=== PATIENT | male | born 1970 | race Asian ===

== ENCOUNTER 2020-07-18 16:07 | Emergency (ER) | payer BC, SELFPAY ==
[~2020-07-18] VITALS: Ht 162.6 cm; Wt 104.3 kg
[2020-07-18 16:22] VITALS: BP_SYST 149
[2020-07-18 16:59] LABS: BASOPHILS # (AUTO) 0.1 K/uL (0.0-0.2); BASOPHILS % (AUTO) 1.2 % (0.0-2.0); EOSINOPHILS # (AUTO) 0.1 K/uL (0.0-0.4); EOSINOPHILS % (AUTO) 1.5 % (0.0-4.0); HEMOGLOBIN 15.1 g/dL (14.0-18.0); LYMPHOCYTES # (AUTO) 1.2 K/uL (1.0-5.5); LYMPHOCYTES % (AUTO) 12.3 % (20.5-51.5); MEAN CORPUSCULAR HEMOGLOBIN 32 pg (27-31); MEAN CORPUSCULAR HGB CONC 33 % (32-36); MEAN CORPUSCULAR VOLUME 95 fL (79.0-98.0); MONOCYTES # (AUTO) 0.8 K/uL (0.0-1.0); MONOCYTES % (AUTO) 8.2 % (1.7-9.3); NEUTROPHILS # (AUTO) 7.2 K/uL (1.8-7.7); NEUTROPHILS % (AUTO) 76.8 % (40.0-70.0); PLATELET COUNT (AUTO) 227 K/uL (130-430); RED BLOOD CELL COUNT(AUTO) 4.75 MIL/uL (4.2-6.2); RED CELL DISTRIBUTION WIDTH 16.1 % (9.0-15.0); WHITE BLOOD COUNT (AUTO) 9.4 K/uL (4.8-10.8)
[2020-07-18 17:16] LABS: CALCIUM 8.3 mg/dL (8.4-11.0); CREATININE 2.33 mg/dL (0.55-1.30); POTASSIUM 5.1 mmol/L (3.5-5.1)
[2020-07-18 17:25] LABS: ALBUMIN 3.1 g/dL (3.4-4.8); TOTAL BILIRUBIN 0.4 mg/dL (0.0-1.0)
[2020-07-18] MEDS ORDERED: FUROSEMIDE 40 MG/4 ML VIAL IVP ONE (18:00)
[2020-07-18] MEDS ORDERED: ALBUTEROL SULFATE 0.083% 2.5 MG/3 ML VIAL.NEB INH ONE (18:00)
[2020-07-18] MEDS ORDERED: predniSONE 20 MG TABLET PO ONE (19:45)
[2020-07-18] MEDS ORDERED: IPRATROPIUM/ALBUTEROL SULFATE 3 ML AMPUL.NEB (DUONEB) INH ONE (19:45)
[2020-07-18] MEDS ORDERED: PRED20TA PO (20:30)
[2020-07-18] MEDS ORDERED: IPRA3AMP9 INH (20:35)
[2020-07-18 20:45] VITALS: BP_SYST 138
== END 2020-07-18 20:45 | disposition home or self-care (01) ==
LOC: SED 16:07
DX: J45.901 Unspecified asthma with (acute) exacerbation (principal); Z20.822 Contact with and (suspected) exposure to COVID-19
CPT/HCPCS: 36415; 71045; 80053; 83880; 84484; 85025; 85379; 87426; 93005; 93970; 94640; 96374; 99285; J1940; J7512; J7613

== ENCOUNTER 2023-05-28 18:24 | Inpatient (IN) | payer BC, OTHER ==
[~2023-05-28] VITALS: Ht 162.6 cm; Wt 90.7 kg
[~2023-05-28 18:24] MED LIST: IPRA3AMP9 INH; PRED20TA PO
[2023-05-28 18:33] VITALS: BP_SYST 146; PULSE 120; RESP 24; TEMP 99.4; O2SAT 89
[2023-05-28] MEDS ORDERED: IPRATROPIUM/ALBUTEROL SULFATE 3 ML AMPUL.NEB (DUONEB) INH ONE ×2 (18:45→19:00)
[2023-05-28] MEDS ORDERED: methylPREDNISolone SOD SUCC/PF 62.5 MG/ML VIAL IVP ONE (19:00)
[2023-05-28] MEDS ORDERED: IPRATROPIUM/ALBUTEROL SULFATE 3 ML AMPUL.NEB (DUONEB) ONE (19:01)
[2023-05-28] MEDS ORDERED: NACL 0.9% 1,000 ML IV ONE (19:15)
[2023-05-28 20:05] LABS: BASOPHILS # (AUTO) 0.1 K/uL (0.0-0.2); BASOPHILS % (AUTO) 0.4 % (0.0-2.0); EOSINOPHILS % (AUTO) 0.2 % (0.0-4.0); HEMATOCRIT 41.3 % (36-54); HEMOGLOBIN 13.8 g/dL (14.0-18.0); LYMPHOCYTES # (AUTO) 1.7 K/uL (1.0-5.5); LYMPHOCYTES % (AUTO) 10.8 % (20.5-51.5); MEAN CORPUSCULAR HEMOGLOBIN 32 pg (27-31); MEAN CORPUSCULAR HGB CONC 33 % (32-36); MEAN CORPUSCULAR VOLUME 95 fL (79.0-98.0); MONOCYTES # (AUTO) 1.5 K/uL (0.0-1.0); MONOCYTES % (AUTO) 9.2 % (1.7-9.3); NEUTROPHILS # (AUTO) 12.5 K/uL (1.8-7.7); NEUTROPHILS % (AUTO) 79.4 % (40.0-70.0); PLATELET COUNT (AUTO) 331 K/uL (130-430); RED BLOOD CELL COUNT(AUTO) 4.34 MIL/uL (4.2-6.2); RED CELL DISTRIBUTION WIDTH 15.4 % (9.0-15.0); WHITE BLOOD COUNT (AUTO) 15.8 K/uL (4.8-10.8)
[2023-05-28 20:13] LABS: ANION GAP 13 (5-15); CALCIUM 8.7 mg/dL (8.4-11.0); CARBON DIOXIDE 18 mmol/L (23-29); CHLORIDE 107 mmol/L (98-107); CREATININE 5.59 mg/dL (0.55-1.30); GFR AFRICAN AMERICAN 14 mL/min (>90); GLUCOSE 93 mg/dL (74-106); POTASSIUM 4.4 mmol/L (3.5-5.1); SODIUM SERUM 138 mmol/L (136-145); UREA NITROGEN, BLOOD 86 mg/dL (8-21)
[2023-05-28 20:16] LABS: GFR NON AFRICAN-AMERICAN 11 mL/min (>90)
[2023-05-28 20:19] LABS: PROTHROMBIN TIME 10.5 SECS (9.5-12.5)
[2023-05-28] MEDS ORDERED: NITROGLYCERIN 0.4 MG TAB.SUBL SL ONE ×2 (20:30→20:45)
[2023-05-28] MEDS ORDERED: FUROSEMIDE 40 MG/4 ML VIAL IVP ONE (20:30)
[2023-05-28 20:32] LABS: ALANINE AMINOTRANSFERASE 109 U/L (12-78); ALBUMIN 2.9 g/dL (3.4-4.8); ASPARTATE AMINOTRANSFERASE 59 U/L (10-37); BILIRUBIN,DIRECT 0.2 mg/dL (0.0-0.3); TOTAL BILIRUBIN 0.4 mg/dL (0.0-1.0); TOTAL PROTEIN, SERUM 6.8 g/dL (6.4-8.3)
[2023-05-28] MEDS ORDERED: FUROSEMIDE 100 MG/10 ML VIAL IVP ONE (20:45)
[2023-05-28] MEDS ORDERED: NITROGLYCERIN 250 ML IV ONE (20:45)
[2023-05-28] MEDS ORDERED: cefTRIAXone 1 GM IVPB PREMIX 50 ML IV ONE (21:00)
[2023-05-28] MEDS ORDERED: AZITHROMYCIN 500 MG in NS 250 ML IV ONE (21:00)
[2023-05-28 21:06] LABS: COVID19 ANTIGEN SOFIA FIA NEGATIVE (NEGATIVE)
[2023-05-28 21:07] LABS: INFLUENZA TYPE A Negative (NEGATIVE); INFLUENZA TYPE B NEGATIVE (NEGATIVE)
[2023-05-28] MEDS ORDERED: MAGNESIUM SULFATE 50 ML IV ONE (21:45)
[2023-05-28] MEDS ORDERED: INSULIN ASPART 100 UNITS/ML, 10 ML VIAL (NovoLOG) SUBCUT PRN (22:00)
[2023-05-28] MEDS ORDERED: ALBUTEROL SULFATE 0.083% 2.5 MG/3 ML VIAL.NEB INH ONE (22:00)
[2023-05-28] MEDS ORDERED: ACETAMINOPHEN 500 MG TABLET PO PRN (22:00)
[2023-05-28] MEDS ORDERED: ONDANSETRON HCL 4 MG/2 ML VIAL IVP PRN (22:00)
[2023-05-28] MEDS ORDERED: ASPIRIN 325 MG TABLET PO ONE (22:15)
[2023-05-28] MEDS ORDERED: HYDR-4037 PO (22:24)
[2023-05-28] MEDS ORDERED: LIP20 PO (22:24)
[2023-05-28] MEDS ORDERED: ISOS30TA85 PO (22:24)
[2023-05-28] MEDS ORDERED: FINE20TA (22:24)
[2023-05-28] MEDS ORDERED: NOR10 PO (22:24)
[2023-05-28] MEDS ORDERED: ALLO300T2 PO (22:24)
[2023-05-28] MEDS ORDERED: DAPA10TA PO (22:24)
[2023-05-28] MEDS ORDERED: MONT-47 (22:47)
[2023-05-28] MEDS ORDERED: BUDE10.7 (22:47)
[2023-05-28] MEDS ORDERED: GLIP2.5T3 PO (22:47)
[2023-05-28] MEDS ORDERED: ALBMDI INH (22:47)
[2023-05-28] MEDS: AZITHROMYCIN 500 MG in NS 250 ML IV SCH (23:00)
[2023-05-28] MEDS ORDERED: cefTRIAXone 1 GM VIAL ONE (23:05)
[2023-05-28] MEDS ORDERED: AZITHROMYCIN 500 MG/VIAL (ZITHROMAX) IV ONE (23:14)
[2023-05-28 23:38] VITALS: PULSE 116
[2023-05-28 23:54] LABS: BILIRUBIN,URINE NEGATIVE (NEGATIVE); BLOOD, URINE 2+ (NEGATIVE); CLARITY/URINE CLEAR (CLEAR); COLOR,URINE YELLOW (YELLOW); GLUCOSE,URINE 1+ (NEGATIVE); KETONES,URINE NEGATIVE (NEGATIVE); LEUKOCYTE ESTERASE ,URINE NEGATIVE (NEGATIVE); NITRITE, URINE NEGATIVE (NEGATIVE); PROTEIN URINE 2+ (NEGATIVE); UROBILINOGEN,URINE 0.2 (0.2-1.0)
[2023-05-29] VITALS (21 sets, daily range): BP systolic 108–138; PULSE 91–114; RESP 20–30; TEMP 97.7–98.3; O2SAT 93–98
[2023-05-29 00:06] LABS: BLOOD GAS PCO2 27.2 mmHg (32.0-45.0); BLOOD GAS PH 7.396 (7.350-7.450)
[2023-05-29 00:07] LABS: BLOOD GAS BASE EXCESS -6.8 mmol/L (-3.0-3.0); BLOOD GAS HCO3 16.3 mmol/L (21.0-27.0); BLOOD GAS PO2 64.8 mmHg (75.0-100.0)
[2023-05-29 00:08] LABS: ALLEN'S TEST POSITIVE (P)
[2023-05-29 00:42] LABS: BACTERIA,URINE RARE /HPF (None Seen)
[2023-05-29 04:25] LABS: BASOPHILS % (AUTO) 0.1 % (0.0-2.0); HEMATOCRIT 41.9 % (36-54); HEMOGLOBIN 13.8 g/dL (14.0-18.0); LYMPHOCYTES # (AUTO) 0.5 K/uL (1.0-5.5); LYMPHOCYTES % (AUTO) 4.7 % (20.5-51.5); MEAN CORPUSCULAR HEMOGLOBIN 32 pg (27-31); MEAN CORPUSCULAR HGB CONC 33 % (32-36); MEAN CORPUSCULAR VOLUME 96 fL (79.0-98.0); MONOCYTES # (AUTO) 0.1 K/uL (0.0-1.0); MONOCYTES % (AUTO) 0.9 % (1.7-9.3); NEUTROPHILS # (AUTO) 10.9 K/uL (1.8-7.7); NEUTROPHILS % (AUTO) 94.3 % (40.0-70.0); PLATELET COUNT (AUTO) 315 K/uL (130-430); RED BLOOD CELL COUNT(AUTO) 4.37 MIL/uL (4.2-6.2); RED CELL DISTRIBUTION WIDTH 15.5 % (9.0-15.0); WHITE BLOOD COUNT (AUTO) 11.6 K/uL (4.8-10.8)
[2023-05-29 04:44] LABS: ALBUMIN 2.9 g/dL (3.4-4.8); CALCIUM 8.6 mg/dL (8.4-11.0); CREATININE 6.01 mg/dL (0.55-1.30); PHOSPHORUS 5.8 mg/dL (2.7-4.5); POTASSIUM 4.9 mmol/L (3.5-5.1); TOTAL BILIRUBIN 0.4 mg/dL (0.0-1.0); TOTAL PROTEIN, SERUM 6.8 g/dL (6.4-8.3)
[2023-05-29] MEDS ORDERED: methylPREDNISolone SOD SUCC/PF 62.5 MG/ML VIAL IVP SCH (06:00)
[2023-05-29] MEDS ORDERED: INSULIN LISPRO SLIDING SCALE 100 UNITS/ML, 3 ML VIAL (humaLOG) SUBCUT PRN (08:30)
[2023-05-29] MEDS: INSULIN LISPRO SLIDING SCALE 100 UNITS/ML, 3 ML VIAL (humaLOG) SUBCUT PRN ×3 (08:35→18:57)
[2023-05-29] MEDS ORDERED: ATORVASTATIN 20 MG TABLET PO ONE (13:00)
[2023-05-29] MEDS ORDERED: MONTELUKAST 10 MG TABLET PO ONE (13:00)
[2023-05-29] MEDS ORDERED: amLODIPine BESYLATE 10 MG TABLET PO ONE (13:00)
[2023-05-29] MEDS ORDERED: ISOSORBIDE MONONITRATE 30 MG TAB.ER.24H PO ONE (13:00)
[2023-05-29] MEDS ORDERED: SODIUM BICARBONATE 8.4% VIAL 50 MEQ/50 ML VIAL INJ ONE (14:00)
[2023-05-29] MEDS: METHYLPREDNISOLONE SOD SUCC 40 MG/ML VIAL IVP SCH ×2 (14:48→23:24)
[2023-05-29] MEDS ORDERED: LIDOCAINE 2%, 20 ML MDV ONE (16:23)
[2023-05-29] MEDS: AZITHROMYCIN 500 MG in NS 250 ML IV SCH (23:24)
[2023-05-30] VITALS (23 sets, daily range): BP systolic 104–137; PULSE 88–100; RESP 16–25; TEMP 97.6–98.8; O2SAT 92–98
[2023-05-30] MEDS: METHYLPREDNISOLONE SOD SUCC 40 MG/ML VIAL IVP SCH ×3 (06:00→22:51)
[2023-05-30 06:27] LABS: BASOPHILS % (AUTO) 0.1 % (0.0-2.0); HEMATOCRIT 40.2 % (36-54); HEMOGLOBIN 13.3 g/dL (14.0-18.0); LYMPHOCYTES # (AUTO) 0.7 K/uL (1.0-5.5); LYMPHOCYTES % (AUTO) 3.6 % (20.5-51.5); MEAN CORPUSCULAR HEMOGLOBIN 32 pg (27-31); MEAN CORPUSCULAR HGB CONC 33 % (32-36); MEAN CORPUSCULAR VOLUME 95 fL (79.0-98.0); MONOCYTES # (AUTO) 0.4 K/uL (0.0-1.0); MONOCYTES % (AUTO) 2.2 % (1.7-9.3); NEUTROPHILS # (AUTO) 17.3 K/uL (1.8-7.7); NEUTROPHILS % (AUTO) 94.1 % (40.0-70.0); PLATELET COUNT (AUTO) 313 K/uL (130-430); RED BLOOD CELL COUNT(AUTO) 4.21 MIL/uL (4.2-6.2); RED CELL DISTRIBUTION WIDTH 15.4 % (9.0-15.0); WHITE BLOOD COUNT (AUTO) 18.4 K/uL (4.8-10.8)
[2023-05-30 06:38] LABS: ALBUMIN 2.8 g/dL (3.4-4.8); CALCIUM 8.7 mg/dL (8.4-11.0); CREATININE 5.51 mg/dL (0.55-1.30); PHOSPHORUS 6.8 mg/dL (2.7-4.5); POTASSIUM 4.9 mmol/L (3.5-5.1); TOTAL BILIRUBIN 0.4 mg/dL (0.0-1.0); TOTAL PROTEIN, SERUM 6.6 g/dL (6.4-8.3)
[2023-05-30] MEDS ORDERED: amLODIPine BESYLATE 10 MG TABLET PO SCH (09:00)
[2023-05-30] MEDS: ATORVASTATIN 20 MG TABLET PO SCH (09:01)
[2023-05-30] MEDS: MONTELUKAST 10 MG TABLET PO SCH (09:02)
[2023-05-30] MEDS: ISOSORBIDE MONONITRATE 30 MG TAB.ER.24H PO SCH (09:06)
[2023-05-30 12:19] LABS: BARBITURATE, URINE NEGATIVE (NEG <=200); BENZODIAZEPINE, URINE NEGATIVE (NEG <=150); CANNABINOID, URINE NEGATIVE (NEG <=50); COCAINE, URINE NEGATIVE (NEG <=150); METHAMPHETAMINES SCREEN,URINE NEGATIVE (NEG <=500); OPIATE, URINE NEGATIVE (NEG <=100); PHENCYCLIDINE SCREEN,URINE NEGATIVE (NEG <=25); URINE AMPHETAMINE NEGATIVE (NEG <=500); URINE METHADONE NEGATIVE (NEG <=200); URINE OXYCODONE SCREEN NEGATIVE (NEG <=100)
[2023-05-30 12:20] LABS: UR TRICYCLIC ANTIDEPRESSANTS NEGATIVE (NEG <=300)
[2023-05-30] MEDS ORDERED: 0.45% NACL 1,000 ML IV SCH (13:15)
[2023-05-30] MEDS: glipiZIDE XL 2.5 MG/TAB (GLUCOTROL XL) PO PRN (13:55)
[2023-05-30] MEDS: CARVEDILOL 3.125 MG TABLET (COREG) PO SCH ×2 (14:19→21:51)
[2023-05-30] MEDS: SEVELAMER CARBONATE 800 MG TABLET PO SCH (17:36)
[2023-05-30] MEDS: AZITHROMYCIN 500 MG in NS 250 ML IV SCH (22:51)
[2023-05-31] VITALS (8 sets, daily range): BP systolic 115–142; PULSE 82–90; RESP 18–22; TEMP 97.7–98.9; O2SAT 84–98
[2023-05-31 05:48] LABS: BASOPHILS % (AUTO) 0.1 % (0.0-2.0); HEMATOCRIT 38.8 % (36-54); HEMOGLOBIN 13.1 g/dL (14.0-18.0); LYMPHOCYTES # (AUTO) 0.7 K/uL (1.0-5.5); LYMPHOCYTES % (AUTO) 3.8 % (20.5-51.5); MEAN CORPUSCULAR HEMOGLOBIN 32 pg (27-31); MEAN CORPUSCULAR HGB CONC 34 % (32-36); MEAN CORPUSCULAR VOLUME 94 fL (79.0-98.0); MONOCYTES # (AUTO) 0.6 K/uL (0.0-1.0); MONOCYTES % (AUTO) 3.3 % (1.7-9.3); NEUTROPHILS # (AUTO) 16.5 K/uL (1.8-7.7); NEUTROPHILS % (AUTO) 92.8 % (40.0-70.0); PLATELET COUNT (AUTO) 276 K/uL (130-430); RED BLOOD CELL COUNT(AUTO) 4.11 MIL/uL (4.2-6.2); RED CELL DISTRIBUTION WIDTH 15.2 % (9.0-15.0); WHITE BLOOD COUNT (AUTO) 17.8 K/uL (4.8-10.8)
[2023-05-31] MEDS: METHYLPREDNISOLONE SOD SUCC 40 MG/ML VIAL IVP SCH (06:00)
[2023-05-31 07:55] LABS: ALBUMIN 2.6 g/dL (3.4-4.8); CALCIUM 7.8 mg/dL (8.4-11.0); CREATININE 5.33 mg/dL (0.55-1.30); POTASSIUM 4.4 mmol/L (3.5-5.1); THYROID STIMULATING HORMONE 0.76 uIu/mL (0.34-4.82); TOTAL BILIRUBIN 0.4 mg/dL (0.0-1.0)
[2023-05-31] MEDS: ATORVASTATIN 20 MG TABLET PO SCH (08:58)
[2023-05-31] MEDS: ISOSORBIDE MONONITRATE 30 MG TAB.ER.24H PO SCH (08:58)
[2023-05-31] MEDS: SEVELAMER CARBONATE 800 MG TABLET PO SCH ×3 (08:58→18:47)
[2023-05-31] MEDS: MONTELUKAST 10 MG TABLET PO SCH (08:58)
[2023-05-31] MEDS ORDERED: CARVEDILOL 3.125 MG TABLET (COREG) PO ONE (10:00)
[2023-05-31] MEDS ORDERED: SACUBITRIL/VALSARTAN 24 MG-26 MG 1 TABLET PO ONE (10:00)
[2023-05-31] MEDS: FUROSEMIDE 40 MG TABLET PO SCH (11:00)
[2023-05-31] MEDS: LORazepam 1 MG TABLET PO PRN ×2 (12:14→20:53)
[2023-05-31] MEDS: glipiZIDE XL 2.5 MG/TAB (GLUCOTROL XL) PO PRN ×2 (12:31→21:07)
[2023-05-31] MEDS: methylPREDNISolone 4 MG TABLET PO SCH ×2 (16:24→23:14)
[2023-05-31] MEDS: SACUBITRIL/VALSARTAN 24 MG-26 MG 1 TABLET PO SCH (20:52)
[2023-05-31] MEDS: CARVEDILOL 6.25 MG TABLET (COREG) PO SCH (20:53)
[2023-05-31] MEDS ORDERED: glipiZIDE XL 2.5 MG/TAB (GLUCOTROL XL) PO PRN (21:30)
[2023-05-31] MEDS: AZITHROMYCIN 500 MG in NS 250 ML IV SCH (23:00)
[2023-06-01] VITALS (7 sets, daily range): BP systolic 109–132; PULSE 80–86; RESP 13–18; TEMP 97.7–98; O2SAT 98–99
[2023-06-01 05:22] LABS: BASOPHILS % (AUTO) 0.1 % (0.0-2.0); HEMATOCRIT 37.9 % (36-54); HEMOGLOBIN 12.8 g/dL (14.0-18.0); LYMPHOCYTES # (AUTO) 0.5 K/uL (1.0-5.5); LYMPHOCYTES % (AUTO) 3.7 % (20.5-51.5); MEAN CORPUSCULAR HEMOGLOBIN 32 pg (27-31); MEAN CORPUSCULAR HGB CONC 34 % (32-36); MEAN CORPUSCULAR VOLUME 94 fL (79.0-98.0); MONOCYTES # (AUTO) 0.3 K/uL (0.0-1.0); NEUTROPHILS # (AUTO) 12.2 K/uL (1.8-7.7); NEUTROPHILS % (AUTO) 94.2 % (40.0-70.0); PLATELET COUNT (AUTO) 262 K/uL (130-430); RED BLOOD CELL COUNT(AUTO) 4.04 MIL/uL (4.2-6.2); RED CELL DISTRIBUTION WIDTH 15.6 % (9.0-15.0)
[2023-06-01 05:58] LABS: ALBUMIN 2.2 g/dL (3.4-4.8); CREATININE 4.67 mg/dL (0.55-1.30); PHOSPHORUS 6.2 mg/dL (2.7-4.5); POTASSIUM 4.2 mmol/L (3.5-5.1); TOTAL BILIRUBIN 0.3 mg/dL (0.0-1.0); TOTAL PROTEIN, SERUM 5.2 g/dL (6.4-8.3); URIC ACID 8.4 mg/dL (2.4-7.0)
[2023-06-01] MEDS: LORazepam 1 MG TABLET PO PRN (06:30)
[2023-06-01] MEDS: methylPREDNISolone 4 MG TABLET PO SCH ×2 (06:30→21:24)
[2023-06-01] MEDS: SACUBITRIL/VALSARTAN 24 MG-26 MG 1 TABLET PO SCH ×2 (09:00→21:24)
[2023-06-01] MEDS: ATORVASTATIN 20 MG TABLET PO SCH (09:44)
[2023-06-01] MEDS: CARVEDILOL 6.25 MG TABLET (COREG) PO SCH ×2 (09:44→21:25)
[2023-06-01] MEDS: MONTELUKAST 10 MG TABLET PO SCH (09:44)
[2023-06-01] MEDS: ISOSORBIDE MONONITRATE 30 MG TAB.ER.24H PO SCH (09:44)
[2023-06-01] MEDS: FUROSEMIDE 40 MG TABLET PO SCH (09:45)
[2023-06-01] MEDS: SEVELAMER CARBONATE 800 MG TABLET PO SCH ×3 (09:45→17:12)
[2023-06-01] MEDS ORDERED: ALLOPURINOL 100 MG TABLET (ZYLOPRIM) PO ONE (14:30)
[2023-06-01] MEDS: AZITHROMYCIN 500 MG in NS 250 ML IV SCH (22:50)
[2023-06-02 02:21] VITALS: BP_SYST 120; PULSE 79; RESP 18; TEMP 98.2; O2SAT 99
[2023-06-02 04:57] LABS: BASOPHILS % (AUTO) 0.1 % (0.0-2.0); HEMATOCRIT 38.1 % (36-54); HEMOGLOBIN 12.8 g/dL (14.0-18.0); LYMPHOCYTES # (AUTO) 0.6 K/uL (1.0-5.5); LYMPHOCYTES % (AUTO) 3.8 % (20.5-51.5); MEAN CORPUSCULAR HEMOGLOBIN 32 pg (27-31); MEAN CORPUSCULAR HGB CONC 34 % (32-36); MEAN CORPUSCULAR VOLUME 94 fL (79.0-98.0); MONOCYTES # (AUTO) 0.6 K/uL (0.0-1.0); MONOCYTES % (AUTO) 3.4 % (1.7-9.3); NEUTROPHILS # (AUTO) 15.7 K/uL (1.8-7.7); NEUTROPHILS % (AUTO) 92.7 % (40.0-70.0); PLATELET COUNT (AUTO) 244 K/uL (130-430); RED BLOOD CELL COUNT(AUTO) 4.04 MIL/uL (4.2-6.2); RED CELL DISTRIBUTION WIDTH 15.1 % (9.0-15.0)
[2023-06-02 05:17] LABS: CREATININE 4.19 mg/dL (0.55-1.30); POTASSIUM 4.2 mmol/L (3.5-5.1)
[2023-06-02] MEDS: glipiZIDE XL 2.5 MG/TAB (GLUCOTROL XL) PO PRN ×2 (05:44→17:06)
[2023-06-02 07:50] LABS: WHITE BLOOD COUNT (AUTO) 16.9 K/uL (4.8-10.8)
[2023-06-02 08:00] VITALS: BP_SYST 114; PULSE 80; RESP 16; TEMP 97.7; O2SAT 99
[2023-06-02] MEDS: ISOSORBIDE MONONITRATE 30 MG TAB.ER.24H PO SCH (08:49)
[2023-06-02] MEDS: SACUBITRIL/VALSARTAN 24 MG-26 MG 1 TABLET PO SCH (08:49)
[2023-06-02] MEDS: SEVELAMER CARBONATE 800 MG TABLET PO SCH ×3 (08:49→17:06)
[2023-06-02] MEDS: ATORVASTATIN 20 MG TABLET PO SCH (08:50)
[2023-06-02] MEDS: CARVEDILOL 6.25 MG TABLET (COREG) PO SCH (08:50)
[2023-06-02] MEDS: MONTELUKAST 10 MG TABLET PO SCH (08:50)
[2023-06-02] MEDS ORDERED: ALLOPURINOL 100 MG TABLET (ZYLOPRIM) PO SCH (09:00)
[2023-06-02] MEDS ORDERED: FUROSEMIDE 20 MG TABLET PO SCH (09:00)
[2023-06-02] MEDS: methylPREDNISolone 4 MG TABLET PO SCH (10:06)
[2023-06-02 12:00] VITALS: BP_SYST 109; PULSE 73; RESP 18; TEMP 96.7; O2SAT 99
[2023-06-02] MEDS ORDERED: SODIUM BICARBONATE 650 MG TABLET PO ONE (15:45)
[2023-06-02 16:00] VITALS: BP_SYST 114; PULSE 80; RESP 16; TEMP 96.8; O2SAT 99
[2023-06-02 20:59] VITALS: BP_SYST 112; PULSE 76; RESP 16; TEMP 97.2; O2SAT 98
[2023-06-02] MEDS ORDERED: SODIUM BICARBONATE 650 MG TABLET PO SCH (21:00)
== END 2023-06-02 23:34 | disposition home or self-care (01) | DRG 193 ==
LOC: SED 18:24 → SIC 21:50 → STU 05-30 23:55
PROVIDERS: ADMIT Family Medicine; ATTEND Family Medicine
PROC: 5A09357 Assistance with Respiratory Ventilation, Less than 24 Consecutive Hours, Continuous Positive Airway Pressure (ICD-10-PCS; principal; 2023-05-28)
DX: J18.9 Pneumonia, unspecified organism (principal); J96.00 Acute respiratory failure, unspecified whether with hypoxia or hypercapnia; N18.6 End stage renal disease; J44.1 Chronic obstructive pulmonary disease with (acute) exacerbation; N17.9 Acute kidney failure, unspecified; J45.901 Unspecified asthma with (acute) exacerbation; J44.0 Chronic obstructive pulmonary disease with (acute) lower respiratory infection; I24.89 Other forms of acute ischemic heart disease; I13.2 Hypertensive heart and chronic kidney disease with heart failure and with stage 5 chronic kidney disease, or end stage renal disease; I31.39 Other pericardial effusion (noninflammatory); I42.0 Dilated cardiomyopathy; E66.01 Morbid (severe) obesity due to excess calories; Z68.34 Body mass index [BMI] 34.0-34.9, adult; I50.9 Heart failure, unspecified; E11.22 Type 2 diabetes mellitus with diabetic chronic kidney disease; N18.9 Chronic kidney disease, unspecified; E78.5 Hyperlipidemia, unspecified; Z20.822 Contact with and (suspected) exposure to COVID-19; F17.210 Nicotine dependence, cigarettes, uncomplicated; F41.9 Anxiety disorder, unspecified; M10.9 Gout, unspecified; Z79.899 Other long term (current) drug therapy
CPT/HCPCS: 36415; 36600; 71045; 71046-TC; 76770; 80048; 80053; 80061; 80076; 80307; 81000; 81001; 81015; 82803; 82962; 83037; 83605; 83735; 83880; 84100; 84311; 84443; 84484; 84550; 85025; 85610-TC; 85730-TC; 87040; 87081; 87086; 93005; 93306; 94640; 94660; 94760; 96365; 96375; 99291; G0378; J0456; J0696; J1030; J1940; J2001; J2930; J7050; J7060; J7509